=== PATIENT | male | born 1945 | race American Indian/Alaskan Native ===

== ENCOUNTER 2018-04-04 06:04 | Outpatient (CLI) | payer MEDICARE, OTHER ==
--- NOTE | 2018-04-05 08:26 | PET Report ---
PET SB TO MT SUBSEQUENT: HISTORY: Restaging of colon cancer and prostate cancer, elevated tumor markers. TECHNIQUE: 15.5 millicuries F-18 FDG was administered intravenously. Noncontrast CT images and PET images were obtained from the skull base to the proximal thighs. Fused images were reviewed on a workstation. The patient's blood glucose level measured 100. COMPARISON: No previous PET/CT. Correlation is made with a CT abdomen pelvis with contrast dated 11/24/11. FINDINGS: BRAIN: physiologic FDG uptake in the imaged brain. NECK: physiologic FDG uptake. MEDIASTINUM: physiologic FDG uptake. LUNGS: physiologic FDG uptake. PLEURA/PERICARDIUM: physiologic FDG uptake. THORACIC LYMPH NODES: physiologic FDG uptake. HEPATOBILIARY: physiologic FDG uptake. Mean liver SUV measures 4.1. PANCREAS: physiologic FDG uptake. SPLEEN: physiologic FDG uptake. ADRENAL GLANDS: physiologic FDG uptake. KIDNEYS/RENAL COLLECTING SYSTEMS: physiologic FDG uptake. Large bilateral renal cysts are stable BOWEL/MESENTERY: physiologic FDG uptake. Surgical suture line in the proximal descending colon is noted. No obvious recurrent colon mass or hypermetabolic activity in this area. PELVIC VISCERA: physiologic FDG uptake. ABDOMINAL/PELVIC LYMPH NODES: physiologic FDG uptake. MUSCULOSKELETAL: physiologic FDG uptake. Thoracolumbar spondylosis. No sclerotic bony lesions are identified. IMPRESSION: Negative PET/CT. No evidence for disease recurrence or metastasis on PET imaging.
== END 2018-04-04 06:05 | disposition home or self-care (01) ==
LOC: PET 06:04
PROVIDERS: ATTEND Internal Medicine Hematology & Oncology
DX: C18.6 Malignant neoplasm of descending colon (principal); M47.895 Other spondylosis, thoracolumbar region
CPT/HCPCS: 78815; 82962; A9552

== ENCOUNTER 2019-12-25 07:22 | Outpatient (CLI) | payer MEDICARE, OTHER ==
--- NOTE | 2019-12-25 16:32 | PET Report ---
PET-CT SCAN INDICATION / CLINICAL INFORMATION: C18.6 COLON CA. Prostate cancer STAGING: Re-staging TECHNIQUE: Tumor imaging, positron emission tomography (PET) with concurrently acquired computed tomography (CT) for attenuation correction and anatomical localization; Skull Base to Mid Thigh - DOSE: 13.89 mCi F-18 FDG was administered IV per protocol in the right antecubital site - GLUCOSE: Patient's blood glucose at that time was (mg/dL): 71 - UPTAKE TIME: PET scan performed approximately 60 minutes after radiotracer administration. - CT SCAN DESCRIPTION: No oral or IV contrast. All CT scans at this location are performed using CT d ose reduction for ALARA by means of automated exposure control. COMPARISON: PET CT scan dated 04/04/2018 FINDINGS: HEAD / NECK: No abnormal radiotracer uptake in the neck. No significant CT abnormality. CHEST: No abnormal radiotracer uptake in the chest. No significant CT abnormality. ABDOMEN / PELVIS: No abnormal radiotracer uptake in the abdomen. There are 2 ventral hernias containi ng loops of small bowel. There is no obstruction or complication related to this.3 LOWER EXTREMITIES: No abnormal radiotracer uptake in the visualized lower extremities. No significant CT abnormality. SKELETAL STRUCTURES: No hypermetabolic bone lesions. No significant CT abnormality. ADDITIONAL FINDINGS: No additional significant findings. IMPRESSION: 1. No recurrent or metastatic disease is identified. There has been no significant change. Signer Name: Ramy Blanco MD Signed: 12/25/2019 4:28 PM Workstation Name: [id number]
== END 2019-12-25 07:23 | disposition home or self-care (01) ==
LOC: PET 07:22
PROVIDERS: ATTEND Internal Medicine Hematology & Oncology
DX: C18.6 Malignant neoplasm of descending colon (principal)
CPT/HCPCS: 78815; 82962; A9552